=== PATIENT | female | born 1990 | race Two or more races ===

== ENCOUNTER 2025-06-29 12:39 | Outpatient (REF) | payer SELFPAY ==
[2025-06-29 19:59] LABS: HCT 37.5 % (36.0-46.0); HGB 12.4 g/dL (11.2-15.7); MCH 30.1 pg (27.0-33.0); MCHC 33.1 % (32.0-36.0); MCV 91 fL (80-95); MPV 11.8 fL (8.0-11.0); Platelet Count 163 10^3/uL (130-400); RBC 4.12 10^6/uL (3.93-5.22); RDW 12.1 % (11.7-14.6); RDW-SD 40.2 fL; WBC 5.66 10^3/uL (4.4-10.8)
[2025-06-29 20:10] LABS: Anion Gap 9.1 mmol/L (3-11); BUN 13 mg/dL (9-23); CO2 27.9 mmol/L (20.0-31.0); Calcium 9.1 mg/dL (8.3-10.6); Chloride 105 mmol/L (98-107); Glucose 87 mg/dL (74-106); Potassium 4.3 mmol/L (3.5-5.1); Sodium 142 mmol/L (136-145)
[2025-06-29 20:11] LABS: Vitamin B12 566 pg/mL (211-911); Vitamin D 25 Total 28 ng/mL (30-100)
== END 2025-06-29 12:40 | disposition home or self-care (01) ==
LOC: NCHCN 12:39
PROVIDERS: Visit Provider Nurse Practitioner
DX: G43.009 Migraine without aura, not intractable, without status migrainosus (principal)
CPT/HCPCS: 80048; 82306; 85027; 82607